=== PATIENT | male | born 1975 | race Caucasian/White ===

== ENCOUNTER 2024-02-18 20:40 | Emergency (ER) | payer MEDICAID, SELFPAY ==
--- NOTE | 2024-02-18 20:43 | ED.OVERDOSE ---
HPI - Overdose General Chief Complaint: Overdose Stated Complaint: unresponsive after od, narcan given now awake Time Seen by Provider: 02/18/24 20:41 Source: patient, EMS and old records reviewed Mode of arrival: EMS History of Present Illness ED Provider: PARIS HUFFMAN Narrative: 49 yo male using heroin tonight s/p accidental overdose - denies SI. He was given 12mg narcan by PD and then woke up. He denies trauma he does not want any interventions. He states he has no plans to stay agrees to stay for 1 hour. He is on suboxone. complaint: accidental overdose Onset (ago): minute(s) ([employer]) Context: Accidental Overdose: wanted to get high Treatments Prior to Arrival: narcan (12mg IN) Related Data Allergies Allergy/AdvReac Type Severity Reaction Status Date / Time No Known Allergies Allergy Unverified 02/18/24 20:55 [No Known Allergies*] Review of Systems Review of Systems: Constitutional : No Fever, No Chills, No Fatigue ENT/Mouth : No sore throat, No Rhinorrhea Eyes: No Eye Pain, No Swelling, No Redness Cardiovascular : No Chest Pain, No SOB, No Dyspnea on Exertion Respiratory : No Cough, No Sputum Gastrointestinal : No Nausea, No Vomiting, No Diarrhea, No abdominal Pain Genitourinary : No Dysuria, No Urinary Frequency, No Hematuria, Musculoskeletal : No joint pain, No Myalgias, No Joint Swelling Skin : No Skin Lesions, No rash Neuro : No Weakness, No Numbness, No Dizziness, no Headache Psych : No Anxiety/Panic, No Depression, no SI All other systems reviewed and are negative FOR[facility]LY [facility], [facility] Past Medical History Attestation statement: The following information was validated with the patient. Source: old records reviewed Medical History Polysubstance abuse Social History Social History Smoked in Last 30 Days: Yes Use of substances other than those prescribed or required for medical reasons: Yes Substance Use Type: Heroin Do you have a plan to hurt others: No Plan Physical Exam Vital Signs: Vital Signs: Last Vital Signs Temp 97.2 F 02/18/24 20:51 Pulse 91 02/18/24 20:51 Resp 16 02/18/24 20:51 BP 150/93 H 02/18/24 20:51 Pulse Ox 100 02/18/24 20:51 O2 Del Method Room Air 02/18/24 20:51 BMI result Body Mass Index 26.6 Appearance: Alert. Oriented X3. No acute distress. Eyes: Pupils equal, round and reactive to light. ENT: Pharynx normal. atraumatic Neck: Normal inspection. Neck supple. CVS: Normal heart rate and rhythm. Pulses normal. Chest: superficial abrasion anterior chest Respiratory: No respiratory distress. Breath sounds normal. Abdomen: Soft and nontender. Skin: Skin warm and dry. Normal skin color. Normal skin turgor. Extremities: No lower extremity edema. No calf ttp Neuro: Oriented X 3. No motor deficit. No sensory deficit. Medical Decision Making Medical Decision Making [facility] Narrative: 49 yo male with opiate use disoder here with c/o accidental overdose he denies SI. He does not want detox or SUDE eval he is on suboxone. At this time he agrees to take narcan but wants to leave [place]. Has superficial abrasion on chest from sternal rub by PD. He has no other complaints Differential Diagnosis Differential Diagnoses: The differential diagnosis associated with the presentation includes substance abuse, overdose Admission/Observation Consideration of admission/observation: Escalation of care including admission/observation considered he refuses interventions External Record Review External record reviewed: Inpatient record Prescription Management I considered prescription management with: Other Discharge Plan Discharge Clinical Impression: Drug overdose Qualifiers: Encounter type: initial encounter Injury intent: accidental or unintentional Qualified Code(s): T50.901A - Poisoning by unspecified drugs, medicaments and biological substances, accidental (unintentional), initial encounter Patient Disposition: Left Against Medical Advice Instructions: Adult Overdose (ED), Against Medical Advice (ED) Additional Instructions: you are leaving against medical advice we wanted you to stay longer after overdose but you chose to leave please carry narcan with you at all times return at any time monitor anterior abrasion for any signs of infection - redness, swelling, yellow drainage Print Language: Arabic
[2024-02-18 20:51] VITALS: BP 150/93; BP 158/105; PULSE 100; PULSE 91; RESP 16; TEMP 36.2; O2SAT 100; O2SAT 98; BMI 26.6
[2024-02-18] MEDS: Naloxone HCl Nasal TAKE HOME 4 MG SPRAY 8 MG NOSTRILALT (21:50)
[2024-02-18 21:52] VITALS: BP 150/93; PULSE 90; RESP 18; TEMP 36.2; O2SAT 99
== END 2024-02-18 21:51 | disposition left against medical advice (07) ==
PROVIDERS: Emergency Provider Emergency Medicine
DX: T50.901A Poisoning by unspecified drugs, medicaments and biological substances, accidental (unintentional), initial encounter (principal); R40.4 Transient alteration of awareness; F19.10 Other psychoactive substance abuse, uncomplicated; Y92.9 Unspecified place or not applicable; Z53.29 Procedure and treatment not carried out because of patient's decision for other reasons
CPT/HCPCS: 99284